=== PATIENT | male | born 1960 | race Caucasian/White ===

== ENCOUNTER 2020-07-16 19:27 | Emergency (ER) | payer BC ==
[2020-07-16] MEDS ORDERED: Lidocaine 1% 10 ML MDV INJECT ONE (20:37)
[2020-07-16] MEDS ORDERED: Bupivacaine 0.5% 10 ML SDV INJECT ONE (20:37)
[2020-07-16] MEDS ORDERED: Diphtheria,Pertussis(Acell),Tetanus Vaccine 0.5 ML Syringe IM ONE (20:38)
--- NOTE | 2020-07-16 20:45 | EDM.PDOC ---
ED HPI GENERAL MEDICAL PROBLEM - General Chief Complaint: Laceration Stated Complaint: RT THUMB LAC Time Seen by Provider: 07/16/20 20:23 Source of Information: Reports: Patient, Family () History Limitations: Reports: No Limitations - History of Present Illness INITIAL COMMENTS - FREE TEXT/NARRATIVE: Mr. Weeks is a most pleasant 60-year-old gentleman who now presents to the ED after injuring his right thumb. He states that the distal portion of his thumb was crushed when some fencing equipment fell on it around 18:00 to 18:30 manuel. He is otherwise uninjured. Here in the ED, the patient's initial BP is found to be significantly elevated at 190/109, otherwise, he is hemodynamically stable, afebrile, saturating 97% on room air. Prior to manuel's thumb injury, the patient denies having a recent fever, chills, sore throat, ear pain, nasal or sinus congestion, cough, dyspnea, chest pain, palpitations, nausea, vomiting, constipation, diarrhea, abdominal pain, u rinary symptoms, recent weight gain or weight loss, recent bloody bowel movements or black bowel movements, recent joint aches, headaches, or rashes. The patient does not have a PCP. He has not received an influenza vaccine this season, and declined an offer to get one now. He believes that it has been more than 10 years since his last tetanus vaccination, but agreed to get one here in the ED. Right Finger-Thumb Pain Score (Numeric/FACES): 4 - Related Data Allergies Allergy/AdvReac Type Severity Reaction Status Date / Time No Known Allergies Allergy Verified 07/16/20 19:41 Home Meds: Home Meds . [No Known Home Meds] 07/16/20 [History] Past Medical History Endocrine/Metabolic History: Reports: Obesity/BMI 30+ Social & Family History - Tobacco Use Tobacco Use Status *Q: Former Tobacco User Years of Tobacco use: 3 Packs/Tins Daily: 1 Month/Year Tobacco Last Used: Quit 1983 - Caffeine Use Caffeine Use: Reports: Coffee - Alcohol Use Alcohol Use History: Yes Alcohol Use Frequency: Socially - Recreational Drug Use Recreational Drug Use: No - Living Situation & Occupation Living situation: Reports: , with Spouse, with Family (1 daughter) Occupation: Employed ([employer]) ED ROS GENERAL - Review of Systems Review Of Systems: Comprehensive ROS is negative, except as noted in HPI. ED EXAM, SKIN/RASH Exam: See Below Exam Limited By: No Limitations General Appearance: Alert, WD/WN, No Apparent Distress Extremities: Normal Range of Motion, Normal Capillary Refill, Other (The radial side of the patient's right thumbnail is lying on top of its dorsal roof, and there is a laceration to the distal ulnar laceration of the finger. Neurovascular status of the finger is intact.) ED SKIN PROCEDURES - Laceration/Wound Repair Right Hand Appearance: Subcutaneous, Irregular, Clean Distal NVT: Neuro & Vascular Intact, No Tendon Injury Anesthetic Type: Digital Local Anesthesia - Lidocaine (Xylocaine): 1% Plain (50:50 admixture) Local Anesthesia - Bupivicaine (Marcaine): 0.5% Plain (50:50 admixture) Local Anesthetic Volume: 2cc Skin Prep: Providone-Iodine (Betadine) Exploration/Debridement/Repair: Wound Explored, In a Bloodless Field, Explored to Base, No Foreign Material Found Lac/Wound length In cm: 0.8 Suture Size: 3-0 # of Sutures: 2 Suture Type: Nylon (Ethilon), Interrupted, Simple Drain Placement: No Sterile Dressing Applied: Nurse Tetanus Status Addressed: Yes Complications: No Course - Vital Signs Last Recorded V/S: Last Vital Signs Temp 36.1 C 07/16/20 19:33 Pulse 86 07/16/20 21:20 Resp 16 07/16/20 21:20 BP 149/84 H 07/16/20 21:20 Pulse Ox 97 07/16/20 19:33 - Orders/Labs/Meds Orders: Active Orders 24 hr Category Date Time Status Fingers Thumb Rt F5 [CR] Stat Exams 07/16/20 21:18 Taken Meds: Medications Discontinued Medications Generic Name Dose Route Start Last Admin Trade Name Freq PRN Reason Stop Dose Admin Bupivacaine HCl 10 ml 07/16/20 20:37 07/16/20 20:56 Bupivacaine 0.5% 10 Ml Sdv INJECT 07/16/20 20:38 10 ml ONETIME ONE Administration Diphtheria/Tetanus/Acell Pertussis 0.5 ml 07/16/20 20:38 07/16/20 21:16 Diphtheria,Pertussis(Acell),Tetanus Vaccine 0.5 Ml Syringe IM 07/16/20 20:39 0.5 ml .ONCE ONE Administration Lidocaine HCl 10 ml 07/16/20 20:37 07/16/20 20:56 Lidocaine 1% 10 Ml Mdv INJECT 07/16/20 20:38 10 ml ONETIME ONE Administration - Re-Assessments/Exams Free Text/Narrative Re-Assessment/Exam: 07/16/20 20:38 As above, the patient suffered a laceration and damage to his right thumbnail when a piece of fencing equipment crushed it earlier tonight. The radial side of his thumbnail is lying on top of its dorsal roof, and there is a laceration to the distal ulnar aspect of the finger. My plan is to place a digital block, then see if I can put the nail back in place, followed by suturing of the distal laceration. 07/16/20 21:18 After the patient had adequate anesthesia from a digital block, I was able to get the fingernail back into its socket. I then placed 2 sutures across the distal laceration using 3-0 Ethilon. The patient tolerated the procedure well. Because the injury occurred by crushing the distal finger, I have ordered x-rays to evaluate for a tuft fracture. 07/16/20 21:40 3-view radiographs of the right thumb appear to be grossly normal, with no fracture or dislocation identified. Formal read per the Radiologist pending. I will have Annel ZIMMER dress the patient's right thumb, then discharge him home with the recommendation that he follow-up with Dr. Haddad this week. His tells me that she has an appointment at Dr. Haddad's office for herself on Friday - perhaps the patient can be seen at that time. Given the patient's elevated BP reading at triage, I am also recommending that the patient check his blood pressure 2-3 times per week for the next 2 to 3 weeks, but only if he is under restful conditions, and write the values down. He then needs to follow-up with a PCP to determine if he has hypertension or not. The patient will be given a tetanus vaccination prior to discharge. Departure - Departure Time of Disposition: 21:41 Disposition: Home, Self-Care 01 Condition: Good Clinical Impression: Laceration of right thumb, Elevated blood pressure reading - Discharge Information *PRESCRIPTION DRUG MONITORING PROGRAM REVIEWED*: Not Applicable *COPY OF PRESCRIPTION DRUG MONITORING REPORT IN PATIENT GREG: Not Applicable Instructions: Laceration Care, Adult Referrals: PCP,None [Primary Care Provider] - Leonel Haddad MD [Physician] - Karina Soni NP [Nurse Practitioner] - Forms: ED Department Discharge Additional Instructions: You were seen in the emergency room after your right thumb was crushed when some fencing equipment fell on it. Work-up in the ER included x-rays of your right thumb, which returned normal. No broken bones were seen. Your nail was put back into place and a laceration on the end of your thumb was sewn shut. Your thumb has been dressed. Please leave the dressing alone. Cover it with some plastic wrap when you are bathing, so that it does not get wet. You may take [id number] ibuprofen, 3 tablets (600 mg) up to every 8 hours, with food, as needed for discomfort. We recommend that you follow-up with the Orthopedic Surgeon Dr. Leonel Haddad this week. Please call his office first thing tomorrow morning to make an appointment. Your blood pressure was significantly elevated at 190/109 in the ER. We recommend that you check your blood pressure 2-3 times per week, at different times of the day, for 2 to 3 weeks, but only if you are under restful conditions = you are sitting quietly for at least 5, and preferably 15 minutes, that the arm that your blood pressure is being checked in is elevated at the level of your heart, that you are not in pain, that you are not ill, and that you are not feeling anxious. Have your write the numbers down, then present them to your PCP when you follow-up in about 3 weeks. Please follow-up with Karina Soni NP, or one of the other providers in the clinic, in approximately 3 weeks. Make sure to bring your blood pressure readings with you when you go. If any other problems, please do not hesitate to return to the ER. Sepsis Event Note (ED) - Evaluation Sepsis Screening Result: No Definite Risk - Focused Exam Vital Signs: Vital Signs Temp Pulse Resp BP Pulse Ox 07/16/20 21:20 86 16 149/84 H 07/16/20 19:33 36.1 C 100 14 190/109 H 97 - My Orders Last 24 Hours: My Active Orders 07/16/20 21:18 Fingers Thumb Rt F5 [CR] Stat - Assessment/Plan Last 24 Hours: My Active Orders 07/16/20 21:18 Fingers Thumb Rt F5 [CR] Stat
--- NOTE | 2020-07-17 08:08 | CR ---
Right thumb: 3 views of the right thumb were obtained. Joint space narrowing is noted within the MCP joint and IP joint of the thumb. Joint space narrowing is also noted at the CMC joint of the thumb. No acute fracture, dislocation or other bony abnormality is appreciated. Impression: 1. Degenerative change as noted above. 2. No acute abnormality is appreciated. Diagnostic code #2
== END 2020-07-16 21:57 | disposition home or self-care (01) ==
LOC: JD.ED 19:27
DX: S61.011A Laceration without foreign body of right thumb without damage to nail, initial encounter (principal); R03.0 Elevated blood-pressure reading, without diagnosis of hypertension; E66.9 Obesity, unspecified; Z68.32 Body mass index [BMI] 32.0-32.9, adult; Z23 Encounter for immunization; Z87.891 Personal history of nicotine dependence; W20.8XXA Other cause of strike by thrown, projected or falling object, initial encounter
CPT/HCPCS: 12001; 73140; 90471; 90715; 99283; J3490

== ENCOUNTER 2021-01-13 09:20 | Emergency (ER) | payer BC ==
--- NOTE | 2021-01-13 09:55 | EDM.PDOC ---
ED HPI GENERAL MEDICAL PROBLEM - General Chief Complaint: General Stated Complaint: HEAD CONGESTION Time Seen by Provider: 01/13/21 09:55 - History of Present Illness INITIAL COMMENTS - FREE TEXT/NARRATIVE: 60-year-old male presents the emergency room with cough congestion and generally not feeling well. Patient's had this illness for about a week now. Has had decreased appetite with it. He has not noticed decreased smell or taste sensation. He has an intermittent cough but mostly to clear his throat. He denies chest pain or chest pressure at this time. Not aware of any significant fevers. He has not had a Covid vaccine. He suffers from obesity but is not on any routine medications at this time he acknowledges he has some prostate problems. - Related Data Allergies Allergy/AdvReac Type Severity Reaction Status Date / Time No Known Allergies Allergy Verified 01/13/21 09:37 Home Meds: Home Meds dexAMETHasone [Decadron] 6 mg PO DAILY #14 sdv 01/13/21 [Rx] Past Medical History - Past Health History Medical/Surgical History: Denies Medical/Surgical History HEENT History: Reports: Impaired Vision Other HEENT History: wears eyeglasses. Genitourinary History: Reports: Prostate Disorder, Other (See Below) Other Genitourinary History: frequent urination Musculoskeletal History: Reports: Fracture Endocrine/Metabolic History: Reports: Obesity/BMI 30+ - Infectious Disease History Infectious Disease History: Reports: Chicken Pox, Measles, Mumps, Shingles Social & Family History - Tobacco Use Tobacco Use Status *Q: Never Tobacco User Second Hand Smoke Exposure: No - Caffeine Use Caffeine Use: Reports: Coffee - Recreational Drug Use Recreational Drug Use: No - Living Situation & Occupation Living situation: Reports: , with Spouse, with Family (1 daughter) Occupation: Employed ([employer]) ED ROS GENERAL - Review of Systems Review Of Systems: See Below Constitutional: Reports: Fever. Denies: Chills, Night Sweats HEENT: Reports: Rhinitis, Sinus Problem Respiratory: Reports: Cough (Intermittent mostly clear his throat). Denies: Pleuritic Chest Pain Cardiovascular: Reports: No Symptoms. Denies: Chest Pain Endocrine: Reports: No Symptoms GI/Abdominal: Reports: No Symptoms : Reports: No Symptoms Musculoskeletal: Reports: No Symptoms Skin: Reports: No Symptoms Neurological: Reports: No Symptoms ED EXAM, GENERAL - Physical Exam Exam: See Below Exam Limited By: No Limitations General Appearance: Alert, No Apparent Distress, Other (O2 saturation often drops as low as 88% on room air. His blood pressure slightly elevated, however lower than his intake blood pressure) Eye Exam: Bilateral Eye: Normal Inspection Ears: Normal External Exam, Normal Canal, Hearing Grossly Normal, Normal TMs Nose: Normal Inspection, Normal Mucosa, No Blood Throat/Mouth: Normal Inspection, Normal Lips, Normal Teeth, Normal Gums, Normal Oropharynx, Normal Voice, No Airway Compromise Head: Atraumatic, Normocephalic Neck: Normal Inspection, Supple, Non-Tender, Full Range of Motion. No: Lymphadenopathy (L), Lymphadenopathy (R) Respiratory/Chest: No Respiratory Distress, Lungs Clear Cardiovascular: Normal Peripheral Pulses, Regular Rate, Rhythm, No Edema GI/Abdominal: Normal Bowel Sounds, Soft, Non-Tender Back Exam: Normal Inspection. No: CVA Tenderness (L), CVA Tenderness (R) Extremities: No Pedal Edema Neurological: Alert, Oriented, Normal Cognition Course - Vital Signs Last Recorded V/S: Last Vital Signs Temp 36.8 C 01/13/21 09:35 Pulse 104 H 01/13/21 09:35 Resp 18 01/13/21 09:35 BP 177/90 H 01/13/21 09:35 Pulse Ox 86 L 01/13/21 09:35 - Orders/Labs/Meds Orders: Active Orders 24 hr Category Date Time Status Acapella [RT Chest Physiotherapy] [RC] ASDIRECTED Care 01/13/21 12:32 Active Oxygen Therapy, ED [RC] ASDIRECTED Care 01/13/21 10:51 Active RT Post Treatment Assessment [RC] Click to Edit Care 01/13/21 12:32 Active RT Pre-Treatment Assessment [RC] Click to Edit Care 01/13/21 12:32 Active Albuterol [Proventil HFA] Med 01/13/21 12:45 Active See Dose Instructions INH Q4H Medication Orders Albuterol (Albuterol 6.7 Gm Inhaler) 0 gm INH Q4H GEORGINA Last Admin: 01/13/21 12:42 Dose: 2 each Documented by: WYATT Labs: Laboratory Tests 01/13/21 01/13/21 01/13/21 Range/Units 10:25 10:25 10:25 WBC 5.17 (4.23-9.07) K/mm3 RBC 5.36 (4.63-6.08) M/mm3 Hgb 15.1 (13.7-17.5) gm/dl Hct 44.6 (40.1-51.0) % MCV 83.2 (79.0-92.2) fl MCH 28.2 (25.7-32.2) pg MCHC 33.9 (32.2-35.5) g/dl RDW Std Deviation 40.6 (35.1-43.9) fL Plt Count 160 L (163-337) K/mm3 MPV 9.9 (9.4-12.3) fl Neutrophils % (Manual) 78 H (40-60) % Band Neutrophils % 0 (0-10) % Lymphocytes % (Manual) 17 L (20-40) % Atypical Lymphs % 0 % Monocytes % (Manual) 5 (2-10) % Eosinophils % (Manual) 0 L (0.8-7.0) % Basophils % (Manual) 0 L (0.2-1.2) Platelet Estimate Adequate RBC Morph Comment Normal D-Dimer, Quantitative 0.44 (0.19-0.50) mg/L Sodium 131 L (136-145) mEq/L Potassium 3.9 (3.5-5.1) mEq/L Chloride 95 L (98-107) mEq/L Carbon Dioxide 29 (21-32) mEq/L Anion Gap 10.9 (5-15) BUN 22 H (7-18) mg/dL Creatinine 1.5 H (0.7-1.3) mg/dL Est Cr Clr Drug Dosing 57.17 mL/min Estimated GFR (MDRD) 48 (>60) mL/min BUN/Creatinine Ratio 14.7 (14-18) Glucose 130 H (70-99) mg/dL Calcium 8.4 L (8.5-10.1) mg/dL Ferritin (26-388) ng/ml Total Bilirubin 0.5 (0.2-1.0) mg/dL AST 22 (15-37) U/L ALT 28 (16-63) U/L Alkaline Phosphatase 47 (46-116) U/L Lactate Dehydrogenase 321 H (85-227) U/L Troponin I < 0.017 (0.00-0.056) ng/mL C-Reactive Protein 13.5 H* (<1.0) mg/dL Total Protein 7.5 (6.4-8.2) g/dl Albumin 3.3 L (3.4-5.0) g/dl Globulin 4.2 gm/dL Albumin/Globulin Ratio 0.8 L (1-2) SARS-CoV-2 RNA (DOT) (NEGATIVE) 01/13/21 01/13/21 Range/Units 10:25 10:25 WBC (4.23-9.07) K/mm3 RBC (4.63-6.08) M/mm3 Hgb (13.7-17.5) gm/dl Hct (40.1-51.0) % MCV (79.0-92.2) fl MCH (25.7-32.2) pg MCHC (32.2-35.5) g/dl RDW Std Deviation (35.1-43.9) fL Plt Count (163-337) K/mm3 MPV (9.4-12.3) fl Neutrophils % (Manual) (40-60) % Band Neutrophils % (0-10) % Lymphocytes % (Manual) (20-40) % Atypical Lymphs % % Monocytes % (Manual) (2-10) % Eosinophils % (Manual) (0.8-7.0) % Basophils % (Manual) (0.2-1.2) Platelet Estimate RBC Morph Comment D-Dimer, Quantitative (0.19-0.50) mg/L Sodium (136-145) mEq/L Potassium (3.5-5.1) mEq/L Chloride (98-107) mEq/L Carbon Dioxide (21-32) mEq/L Anion Gap (5-15) BUN (7-18) mg/dL Creatinine (0.7-1.3) mg/dL Est Cr Clr Drug Dosing mL/min Estimated GFR (MDRD) (>60) mL/min BUN/Creatinine Ratio (14-18) Glucose (70-99) mg/dL Calcium (8.5-10.1) mg/dL Ferritin 926 H (26-388) ng/ml Total Bilirubin (0.2-1.0) mg/dL AST (15-37) U/L ALT (16-63) U/L Alkaline Phosphatase (46-116) U/L Lactate Dehydrogenase (85-227) U/L Troponin I (0.00-0.056) ng/mL C-Reactive Protein (<1.0) mg/dL Total Protein (6.4-8.2) g/dl Albumin (3.4-5.0) g/dl Globulin gm/dL Albumin/Globulin Ratio (1-2) SARS-CoV-2 RNA (DOT) Positive H (NEGATIVE) Meds: Medications Generic Name Dose Route Start Last Admin Trade Name Freq PRN Reason Stop Dose Admin Albuterol 0 gm 01/13/21 12:45 01/13/21 12:42 Albuterol 6.7 Gm Inhaler INH 2 each Q4H GEORGINA Administration Discontinued Medications Generic Name Dose Route Start Last Admin Trade Name Freq PRN Reason Stop Dose Admin Dexamethasone 6 mg 01/13/21 12:29 01/13/21 12:36 Dexamethasone 4 Mg Tab PO 01/13/21 12:30 6 mg ONETIME ONE Administration - Re-Assessments/Exams Free Text/Narrative Re-Assessment/Exam: 01/13/21 12:37 The patient is Covid positive he is requiring oxygen. He was down to 86% on room air at rest. I discussed with the patient the option of transferring out because we do not have hospital beds versus outpatient treatment with oxygen and he would prefer to pursue this option. Discussed that we would not be able to do the remdesivir, or the antiviral treatment as an outpatient he understands this. We will start him on Acapella albuterol and dexamethasone in addition to supplemental oxygen. Chest x-ray is suspicious for Covid pneumonia. Departure - Departure Time of Disposition: 13:35 Disposition: Home, Self-Care 01 Clinical Impression: Pneumonia due to COVID-19 virus - Discharge Information Prescriptions: dexAMETHasone [Decadron] 6 mg PO DAILY #14 sdv Referrals: PCP,None [Primary Care Provider] - Forms: ED Department Discharge Additional Instructions: Return to the emergency room with any questions problems or worsening symptoms. Your work-up in the emergency room today is consistent with a Covid pneumonia. As we discussed to be sent home on supplemental oxygen as we have no local hospital beds. You have been started on an albuterol inhaler use 2 puffs every 4 hours while awake and as needed. Use the incentive spirometer as instructed and the other modalities from respiratory therapy. You will be started on dexamethasone. Your first dose was given here in the emergency room he will be placed on 6 mg daily. This is best taken first thing every morning. This was sent electronically to [facility]. Consider vaccination. I believe it is 5 weeks after your symptoms are completely resolved before you are eligible to get the vaccine double check this with the health department. Social isolation for 12 days from the day of onset of symptoms. Sepsis Event Note (ED) - Evaluation Sepsis Screening Result: No Definite Risk - Focused Exam Vital Signs: Vital Signs Temp Pulse Resp BP Pulse Ox 01/13/21 09:35 36.8 C 104 H 18 177/90 H 86 L - My Orders Last 24 Hours: My Active Orders 01/13/21 10:51 Oxygen Therapy, ED [RC] ASDIRECTED 01/13/21 12:32 Acapella [RT Chest Physiotherapy] [RC] ASDIRECTED RT Post Treatment Assessment [RC] Click to Edit RT Pre-Treatment Assessment [RC] Click to Edit 01/13/21 12:45 Albuterol [Proventil HFA] See Dose Instructions INH Q4H - Assessment/Plan Last 24 Hours: My Active Orders 01/13/21 10:51 Oxygen Therapy, ED [RC] ASDIRECTED 01/13/21 12:32 Acapella [RT Chest Physiotherapy] [RC] ASDIRECTED RT Post Treatment Assessment [RC] Click to Edit RT Pre-Treatment Assessment [RC] Click to Edit 01/13/21 12:45 Albuterol [Proventil HFA] See Dose Instructions INH Q4H
--- NOTE | 2021-01-13 11:35 | CR ---
Chest: Frontal view of the chest was obtained. Comparison: No prior chest imaging is available. Patchy increased densities are noted within the right upper lung. Lesser change is seen within the left upper lung. Heart size and mediastinum are normal. Bony structures show nothing acute. Impression: 1. Increased density within both upper lungs. Findings are suspicious for pneumonia. Please exclude COVID etiology. Diagnostic code #3
[2021-01-13] MEDS ORDERED: Dexamethasone 4 MG Tab PO ONE (12:29)
[2021-01-13] MEDS ORDERED: Albuterol 6.7 GM Inhaler INH SCH (12:45)
== END 2021-01-13 14:37 | disposition home or self-care (01) ==
LOC: JD.ED 09:20
DX: U07.1 COVID-19 (principal); J12.82 Pneumonia due to coronavirus disease 2019; E66.9 Obesity, unspecified; Z68.33 Body mass index [BMI] 33.0-33.9, adult
CPT/HCPCS: 36415; 71045; 80053; 82728; 83615; 84484; 85007; 85027; 85379; 86140; 87635; 94640; 94667; 99284; A9270; J8540; 99283; U0002